=== PATIENT | male | born 1980 | race African-American/Black ===

== ENCOUNTER 2023-05-18 20:36 | Emergency (ER) | payer OTHER, SELFPAY ==
[2023-05-18 21:14] VITALS: BP 112/68; PULSE 83; RESP 18; TEMP 36.6; O2SAT 96; BMI 25.8
[2023-05-18 22:15] VITALS: BP 123/84; PULSE 78; RESP 17; TEMP 36.5; O2SAT 97
--- NOTE | 2023-05-18 22:54 | ED.EXTPRO ---
HPI - Extremity Problem General Chief complaint: Extremity Injury, Upper Stated complaint: Right shoulder Pain/Fall Time Seen by Provider: 05/18/23 22:27 Source: patient Mode of arrival: ambulatory Limitations: no limitations History of Present Illness HPI Narrative: Patient reports tripped and fell yesterday landed on his right shoulder comes here with swelling and pain in right shoulder no other injury Related Data Previous Rx's Medication Instructions Recorded ibuprofen 600 mg tablet 600 mg PO Q6H PRN fever or pain 05/18/23 #30 tabs Allergies Allergy/AdvReac Type Severity Reaction Status Date / Time pollen extracts Allergy Sneezing Verified 05/18/23 21:13 Review of Systems Review of Systems: Yes all other systems are reviewed and are negative Physical Exam Vital Signs: Vital Signs: Last Vital Signs Temp 97.7 F 05/18/23 22:15 Pulse 78 05/18/23 22:15 Resp 17 05/18/23 22:15 BP 123/84 05/18/23 22:15 Pulse Ox 97 05/18/23 22:15 O2 Del Method Room Air 05/18/23 22:15 BMI result Body Mass Index 25.8 Extrem: Shoulder/upper arm images: 1. Obvious deformity of AC separation Neurovascular intact good shoulder movement Medical Decision Making Medical Decision Making MDM Narrative: Patient with AC separation grade 3 sling was applied advised to follow with orthopedic Radiology Impression Discussion of test interpretation with radiology: I have reviewed the radiologist's reading. Radiologist Impression: XR/XR shoulder RT min 2V IMPRESSION: 1.? Acromioclavicular separation with elevation of the clavicle and increased coracoclavicular distance, consistent with a type III versus V acromioclavicular joint injury. 2.? Calcific/ossific bodies adjacent to the greater tuberosity of the humerus, nonspecific could be related with calcific tendinosis or less likely avulsion injury, correlate with point tenderness. ? Discharge Plan Discharge Clinical Impression: Acromioclavicular joint separation, type 3 Patient Disposition: Home, Self-Care Instructions: Acromioclavicular Separation (ED) Additional Instructions: Wear the sling for support Follow-up with orthopedics Avoid lifting your right arm Ibuprofen for pain Prescriptions: New ibuprofen 600 mg tablet 600 mg PO Q6H PRN (Reason: fever or pain) Qty: 30 0RF Referrals: Jone Amin MD [Physician] - 2 weeks
--- NOTE | 2023-05-18 23:19 | PC.NURSE ---
Reviewed discharge instruction with pt, pt verbalized understanding. Pt refused medication. notified ANALI Enamorado
== END 2023-05-18 23:22 | disposition home or self-care (01) ==
PROVIDERS: Emergency Provider Internal Medicine; PCP Internal Medicine
DX: S43.101A Unspecified dislocation of right acromioclavicular joint, initial encounter (principal); W01.0XXA Fall on same level from slipping, tripping and stumbling without subsequent striking against object, initial encounter; Y93.9 Activity, unspecified; Y92.9 Unspecified place or not applicable; Y99.9 Unspecified external cause status
CPT/HCPCS: 73000; 73030; 99283